=== PATIENT | male | born 1995 | race Caucasian/White ===

== ENCOUNTER 2020-02-20 21:07 | Emergency (ER) | payer BC, OTHER ==
[2020-02-20 21:14] VITALS: BP 143/78; PULSE 72; RESP 18; TEMP 99.4
--- NOTE | 2020-02-20 21:29 | ED ---
Wound/Laceration HPI - General Chief Complaint: Wound/Laceration Stated Complaint: Thumb Laceration, [facility] Time Seen by Provider: 02/20/20 21:15 Source: patient Mode of arrival: ambulatory Limitations: no limitations - History of Present Illness Initial Comments: Patient is a 24-year-old male presenting to emergency Department with a cut to his right thumb. 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 Bleeding is controlled at this time. He denies being on blood thinners. He states his tetanus vaccine is up-to-date. He has no further complaints at this time. Upon arrival to the ER, his vitals are stable. - Related Data Home Medications Medication Instructions Recorded Confirmed Docusate [Colace] 100 mg PO BID 01/24/16 01/27/16 Fiber Supplement 1 tab PO DAILY 01/24/16 01/27/16 Sinus Reliever 1 tab PO DAILY PRN 01/24/16 01/27/16 Allergies Allergy/AdvReac Type Severity Reaction Status Date / Time atomoxetine HCl AdvReac Unknown Dehydration, Verified 02/20/20 21:14 [From Strattera] Stomach cramps, Constipation Review of Systems ROS Statement: Those systems with pertinent positive or pertinent negative responses have been documented in the HPI. ROS Other: All systems not noted in ROS Statement are negative. Past Medical History Additional Past Medical History / Comment(s): CONSTIPATION, GANGLION CYST RIGHT WRIST. History of Any Multi-Drug Resistant Organisms: None Reported Past Surgical History: No Surgical Hx Reported Additional Past Anesthesia/Blood Transfusion Reaction / Comment(s): PT HAS NEVER RECEIVED ANESTHESIA Past Psychological History: No Psychological Hx Reported Smoking Status: Never smoker Past Alcohol Use History: None Reported Past Drug Use History: None Reported - Past Family History Mother Family Medical History: No Reported History General Exam - General Exam Comments Initial Comments: GENERAL: Well-appearing, well-nourished and in no acute distress. HEAD: Atraumatic, normocephalic. EYES: Pupils equal round and reactive to light, extraocular movements intact, sclera anicteric, conjunctiva are normal. ENT: TMs normal, nares patent, oropharynx clear without exudates. Moist mucous membranes. NECK: Normal range of motion, supple without lymphadenopathy or JVD. LUNGS: Breath sounds clear to auscultation bilaterally and equal. No wheezes rales or rhonchi. HEART: Regular rate and rhythm without murmurs, rubs or gallops. ABDOMEN: Soft, nontender, normoactive bowel sounds. No guarding, no rebound. No masses appreciated. : Deferred EXTREMITIES: Normal range of motion, no pitting or edema. No clubbing or cyanosis. NEUROLOGICAL: Cranial nerves II through XII grossly intact. Normal speech, normal gait. PSYCH: Normal mood, normal affect. SKIN: Warm, Dry, normal turgor, no rashes. Patient has a very superficial 0.5cm laceration to the tip of the right thumb. There is no active bleeding, this does not require sutures or skin glue. Limitations: no limitations Course Vital Signs 02/20/20 21:12 Temperature 99.4 F Pulse Rate 72 Respiratory 18 Rate Blood Pressure 143/78 O2 Sat by Pulse 99 Oximetry Medical Decision Making - Medical Decision Making Patient is a 24-year-old male here for a very superficial 0.5cm laceration to the tip of the right thumb that he sustained while on duty with a dirty razor. This does not require sutures or skin glue. There is no active bleeding. Patient is up-to-date with his tetanus vaccine. Wound was cleaned with sterile saline, topical antibiotic and bandage was applied. He is stable for discharge. Case discussed with Dr. Lagos. Disposition Clinical Impression: Superficial laceration of right hand Disposition: HOME SELF-CARE Condition: Stable Instructions (If sedation given, give patient instructions): Laceration (ED) Additional Instructions: Please return to the Emergency Department if symptoms worsen or any other concerns. Keep wound clean and dry, wash soap and water, apply topical antibiotic once a day. Is patient prescribed a controlled substance at d/c from ED?: No Referrals: None,Stated [Primary Care Provider] - 1-2 days
== END 2020-02-20 21:36 | disposition home or self-care (01) ==
LOC: EC 21:07
DX: S61.011A Laceration without foreign body of right thumb without damage to nail, initial encounter (principal); K59.00 Constipation, unspecified; Z88.8 Allergy status to other drugs, medicaments and biological substances; Z79.899 Other long term (current) drug therapy; W26.8XXA Contact with other sharp object(s), not elsewhere classified, initial encounter; Y92.69 Other specified industrial and construction area as the place of occurrence of the external cause; Y99.0 Civilian activity done for income or pay
CPT/HCPCS: 99282

== ENCOUNTER → 2021-01-13 | Outpatient (CLI) | payer BC ==
--- NOTE | 2021-01-13 09:46 | US ---
EXAMINATION TYPE: US abdomen complete DATE OF EXAM: 01/13/2021 COMPARISON: NONE CLINICAL HISTORY: R10.00 Right Upper Quad Pain. RUQ pain for years EXAM MEASUREMENTS: Liver Length: 14.5 cm Gallbladder Wall: 0.2 cm CBD: 0.4 cm Spleen: 12.0 cm Right Kidney: 9.9 x 4.5 x 4.9 cm Left Kidney: 11.3 x 4.3 x 4.4 cm Pancreas: limited views appear wnl Liver: wnl Gallbladder: wnl Evidence for sonographic Jeffers's sign: no CBD: wnl Spleen: wnl Right Kidney: wnl Left Kidney: wnl Upper IVC: wnl Abd Aorta: wnl The liver is homogenous. The intrahepatic portion of the IVC and proximal abdominal aorta are within normal limits. There is no evidence of cholelithiasis. Common bile duct is unremarkable. The visu alized portions of the pancreas are homogenous. The spleen is unremarkable. Kidneys are symmetric a nd free of hydronephrosis. No renal lesions are seen. IMPRESSION: WNL
== END | disposition home or self-care (01) ==
LOC: RADUSWWP 08:52
PROVIDERS: ATTEND Family Medicine
DX: R10.11 Right upper quadrant pain (principal)
CPT/HCPCS: 76700

== ENCOUNTER → 2021-02-19 | Outpatient (CLI) | payer BC ==
--- NOTE | 2021-02-19 09:54 | NM ---
Nuclear medicine hepatobiliary scan. HISTORY: Pain. DOSAGE: The patient received 8 ounces of ensure plus and 5 mCi of Technetium 99m Choletec. FINDINGS: There is normal hepatic extraction. The gallbladder is seen by 20 minutes. There is bilia ry to bowel clearance by 20 minutes. Ejection fraction is 70%. IMPRESSION: 1. Normal hepatobiliary exam
== END | disposition home or self-care (01) ==
LOC: RADNMMAIN 07:00
PROVIDERS: ATTEND Family Medicine
DX: R10.9 Unspecified abdominal pain (principal)
CPT/HCPCS: 78226; A9537

== ENCOUNTER → 2021-12-04 | Outpatient (CLI) | payer BC ==
--- NOTE | 2021-12-04 08:11 | US ---
EXAMINATION TYPE: US abdomen complete DATE OF EXAM: 12/04/2021 COMPARISON: NONE CLINICAL HISTORY: R74.8 ABNORMAL LEVELS OF OTHER SERUM ENZYMES. Elevated lfts EXAM MEASUREMENTS: Liver Length:13.3 cm Gallbladder Wall: .2 cm CBD: .3 cm Spleen: 12.6 cm Right Kidney: 9.7 x 4.3 x 4.4 cm Left Kidney: 10.9 x 3.9 x cm Pancreas: wnl Liver: wnl Gallbladder: wnl Evidence for sonographic Jeffers's sign: no CBD: wnl Spleen: wnl Right Kidney: wnl Left Kidney: wnl Upper IVC: wnl Abd Aorta: wnl The liver is homogenous. The intrahepatic portion of the IVC and proximal abdominal aorta are within normal limits. There is no evidence of cholelithiasis. Common bile duct is unremarkable. The visu alized portions of the pancreas are homogenous. The spleen is unremarkable. Kidneys are symmetric a nd free of hydronephrosis. No renal lesions are seen. IMPRESSION: No distinct abnormality appreciated.
== END | disposition home or self-care (01) ==
LOC: RADUSWWP 07:04
PROVIDERS: ATTEND Family Medicine
DX: R74.8 Abnormal levels of other serum enzymes (principal)
CPT/HCPCS: 76700

== ENCOUNTER 2022-09-01 19:28 | Emergency (ER) | payer BC, OTHER ==
--- NOTE | 2022-09-01 20:39 | XR ---
EXAMINATION TYPE: XR hand complete RT DATE OF EXAM: 09/01/2022 8:21 PM INDICATION: Patient age:Male; 27 years old; Reason for study: right finger/right knuckle injury; [facility]. COMPARISON: None TECHNIQUE: Frontal, lateral and oblique views of the right hand were obtained. FINDINGS: Curvilinear lucency through the base of the second digit proximal phalanx ulnar aspect with extension to the articular surface. No displacement. There is soft tissue swelling. IMPRESSION: Acute nondisplaced intra-articular fracture of the second digit proximal phalanx base.
--- NOTE | 2022-09-01 20:44 | ED ---
Upper Extremity HPI - General Chief Complaint: Extremity Injury, Upper Stated Complaint: Finger injury Time Seen by Provider: 09/01/22 20:01 Source: patient Mode of arrival: ambulatory Limitations: no limitations - History of Present Illness Initial Comments: Patient is a 27-year-old male who presents to the emergency department for right pointer finger injury. Patient states he smashed his finger in automatic revolving door. He reports mild pain over the knuckle of his right pointer finger. 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 - Related Data Home Medications Medication Instructions Recorded Confirmed Docusate [Colace] 100 mg PO BID 01/24/16 01/27/16 Fiber Supplement 1 tab PO DAILY 01/24/16 01/27/16 Sinus Reliever 1 tab PO DAILY PRN 01/24/16 01/27/16 Previous Rx's Medication Instructions Recorded Ibuprofen [Motrin] 800 mg PO Q8HR PRN #30 tab 09/01/22 Allergies Allergy/AdvReac Type Severity Reaction Status Date / Time atomoxetine HCl AdvReac Unknown Dehydration, Verified 09/01/22 19:46 [From Strattera] Stomach cramps, Constipation Review of Systems ROS Statement: Those systems with pertinent positive or pertinent negative responses have been documented in the HPI. ROS Other: All systems not noted in ROS Statement are negative. Past Medical History Additional Past Medical History / Comment(s): CONSTIPATION, GANGLION CYST RIGHT WRIST. History of Any Multi-Drug Resistant Organisms: None Reported Past Surgical History: No Surgical Hx Reported Additional Past Anesthesia/Blood Transfusion Reaction / Comment(s): PT HAS NEVER RECEIVED ANESTHESIA Past Psychological History: No Psychological Hx Reported Smoking Status: Never smoker Past Alcohol Use History: None Reported Past Drug Use History: None Reported - Past Family History Mother Family Medical History: No Reported History General Exam Limitations: no limitations General appearance: alert, in no apparent distress Head exam: Present: atraumatic, normocephalic, normal inspection Respiratory exam: Present: normal lung sounds bilaterally. Absent: respiratory distress, wheezes, rales, rhonchi, stridor Cardiovascular Exam: Present: regular rate, normal rhythm, normal heart sounds. Absent: systolic murmur, diastolic murmur, rubs, gallop, clicks Extremities exam: Present: other (Minimal swelling and erythema over right pointer finger knuckle. Neurovascularly intact.Full range of motion) Neurological exam: Present: alert, oriented X3, CN II-XII intact Psychiatric exam: Present: normal affect, normal mood Skin exam: Present: warm, dry, intact, normal color. Absent: rash Course Vital Signs 09/01/22 09/01/22 19:44 21:01 Temperature 98.1 F 98.0 F Pulse Rate 89 84 Respiratory 18 17 Rate Blood Pressure 155/105 171/108 O2 Sat by Pulse 98 98 Oximetry Procedures - Orthopedic Splinting/Casting Injury #1 Upper Extremity Injury Location: short arm Upper Extremity Immobilizer: volar splint Medical Decision Making - Medical Decision Making This is a 27-year-old presenting with right pointer finger injury. Right hand x-ray obtained and interpreted by me which shows an acute nondisplaced intra-articular fracture of the second digit proximal phalanx base. I placed patient in volar splint. Neurovascularly intact on reassessment. Fracture education discussed in detail. He will be discharged with orthopedic referral. Dr. Lagos is my attending. Disposition Clinical Impression: Finger fracture, right Disposition: HOME SELF-CARE Condition: Good Instructions (If sedation given, give patient instructions): Finger Fracture (ED) Additional Instructions: Keep splint clean and dry. Take Motrin as directed for pain. Follow-up with referral specialist in 1-2 days. Return to the emergency department experience new, concerning, or worsening symptoms. Prescriptions: Ibuprofen [Motrin] 800 mg PO Q8HR PRN #30 tab PRN Reason: Pain Is patient prescribed a controlled substance at d/c from ED?: No Referrals: Dwain Cisneros MD [Primary Care Provider] - 1-2 days Panda Jeffers MD [STAFF PHYSICIAN] - 1-2 days
[2022-09-01 21:02] VITALS: BP 171/108; PULSE 84; RESP 17; TEMP 98
== END 2022-09-01 21:17 | disposition home or self-care (01) ==
LOC: EC 19:28
DX: S62.644A Nondisplaced fracture of proximal phalanx of right ring finger, initial encounter for closed fracture (principal); Z88.8 Allergy status to other drugs, medicaments and biological substances; W23.1XXA Caught, crushed, jammed, or pinched between stationary objects, initial encounter
CPT/HCPCS: 29125; 99283

== ENCOUNTER → 2022-10-02 | Outpatient (CLI) | payer BC ==
[2022-10-02 16:18] LABS: Albumin 4.7 g/dL (3.8-4.9); Albumin/Globulin Ratio 1.83 (1.60-3.17); Bilirubin, Conjugated 0.37 mg/dL (0.20-0.40); Bilirubin,Unconjugated 1.02 mg/dL (0.20-1.00); Globulin 2.6 g/dL (1.6-3.3); Total Bilirubin 1.4 mg/dL (0.30-1.20); Total Protein 7.3 g/dL (6.2-8.2)
== END | disposition home or self-care (01) ==
LOC: LABWHC1 08:59
PROVIDERS: ATTEND Nurse Practitioner Family
DX: K76.0 Fatty (change of) liver, not elsewhere classified (principal)
CPT/HCPCS: 36415; 80076

== ENCOUNTER 2022-10-16 06:47 | Day surgery (SDC) | payer BC ==
[~2022-10-16 06:47] MED LIST: LIDOCAINE 1% (10MG/ML) FOR IV START INTRADERMA PRN
[2022-10-16] MEDS: LACTATED RINGERS 1,000 ML IV SCH ×2 (07:04→07:41)
[2022-10-16 07:09] VITALS: TEMP 70
[2022-10-16] MEDS ORDERED: LIDOCAINE 2% INJ 20 MG/ML (2 ML VIAL) ONE (07:38)
[2022-10-16] MEDS ORDERED: fentaNYL (PF) 50 MCG/ML 2 ML AMP ONE (07:38)
[2022-10-16] MEDS ORDERED: PROPOFOL 10 MG/ML 20 ML VIAL IV ONE (07:38)
[2022-10-16] MEDS ORDERED: MIDAZOLAM 2 MG/2 ML VIAL ONE (07:38)
--- NOTE | 2022-10-16 08:00 | P.PCN ---
Date of Procedure: 10/16/22 Procedure(s) Performed: Brief history: Patient is a pleasant 27-year-old white male scheduled for an elective upper endoscopy as well as colonoscopy as a part of evaluation of diffuse abdominal pain, gas esophagitis or reflux symptoms and change in bowel habits for the last 5 years duration. He also complains of severe abdominal bloating postprandially almost on a daily basis. Procedure performed: Esophagogastroduodenoscopy with biopsy Colonoscopy with biopsy Preoperative diagnosis: Abdominal pain, abdominal bloating and gastroesophageal reflux symptoms Change in bowel habits Anesthesia: MAC Procedure: After informed consent was obtained from the patient was brought into the endoscopy unit and IV sedation was administered by anesthesia under continuous monitoring. Initially upper endoscopy was done. The Olympus GF 160 video endoscope was inserted inserted into the mouth and esophagus intubated without any difficulty and was gradually advanced into the stomach and duodenum and carefully examined. The bulb and second part of the duodenum appeared normal. Abscesses were done from the duodenum to rule out celiac disease. The scope was then withdrawn into the stomach adequately insufflated with air and upon careful examination the antrum mild gastritis and biopsies were done from this area. Mucosa of the body, cardia and fundus appeared normal. The scope was then withdrawn into the esophagus. The GE junction was located at 40 cm to the incisors. It appeared regular with no erythema erosions or ulcerations. Rest of the esophagus appeared normal. Patient tolerated the procedure well. At this time the patient continued to remain sedation. Initial digital rectal examination was normal. Olympus CF 160 video colonoscope was then inserted into the rectum and gradually advanced to the cecum without any difficulty. Careful examination was performed as the scope was gradually being withdrawn. The prep was excellent. Terminal ileum was intubated and 20 cm visualized and appeared normal. The cecum, ascending colon, transverse colon, descending colon, sigmoid colon and rectum appeared normal. Random biopsies were done from ascending and descending colon to rule out microscopic/collagenous colitis. Retroflexion was performed in the rectum and no lesions were noted. Patient tolerated the procedure well. Impression: 1. Upper endoscopy revealed mild antral gastritis but no evidence of esophagitis or peptic ulcer disease 2. Colonoscopy was within normal limits with no evidence of colorectal neoplasia. Normal-appearing terminal ileum Recommendations: Findings of this examination were discussed with the patient as well as his family. He was advised to follow with the biopsy results will be seen in office in 3-4 weeks.
[2022-10-16 08:33] VITALS: RESP 16
[2022-10-16 08:35] VITALS: BP 132/81; PULSE 57
== END 2022-10-16 08:57 | disposition home or self-care (01) ==
LOC: ORWHC2ENDO 06:47
PROVIDERS: ATTEND Internal Medicine Gastroenterology
DX: K63.89 Other specified diseases of intestine (principal); K29.50 Unspecified chronic gastritis without bleeding; K31.89 Other diseases of stomach and duodenum; K21.9 Gastro-esophageal reflux disease without esophagitis; Z79.899 Other long term (current) drug therapy
CPT/HCPCS: 45380; 43239; 88305; J2250; J3010; J2704; J2001

== ENCOUNTER → 2023-11-02 | Outpatient (CLI) | payer BC ==
[2023-11-02 16:22] LABS: Basophils # (A) 0.08 X 10*3/uL (0.00-0.10); Basophils % (A) 1.2 %; Eosinophils # (A) 0.77 X 10*3/uL (0.04-0.35); Eosinophils % (A) 11.9 %; HCT 51.3 % (39.6-50.0); HGB 17.4 g/dL (13.0-17.0); Lymphocytes # (A) 2.22 X 10*3/uL (0.90-5.00); Lymphocytes % (A) 34.4 %; MCH 30.6 pg (27.0-32.0); MCHC 33.9 g/dL (32.0-37.0); MCV 90.3 FL (80.0-97.0); Mean Platelet Volume 10.3 FL (9.5-12.2); Monocytes % (A) 7.8 %; NRBC Per 100 WBC 0 X 10*3/uL (0.00-0.01); Neutrophils # (A) 2.86 X 10*3/uL (1.80-7.70); Neutrophils % (A) 44.4 %; Platelet Count 267 X 10*3/uL (140-440); RBC 5.68 X 10*6/uL (4.40-5.60); RDW 12.4 % (11.5-14.5); WBC 6.45 X 10*3/uL (4.50-10.00)
[2023-11-02 16:42] LABS: ALT 25 U/L (10-49); AST 22 U/L (14-35); Albumin 4.7 g/dL (3.8-4.9); Albumin/Globulin Ratio 1.81 Ratio (1.60-3.17); Alkaline Phosphatase 64 U/L (41-126); BUN/Creat Ratio 10.36 Ratio (12.00-20.00); Blood Urea Nitrogen 11.4 mg/dL (9.0-27.0); Calcium 9.9 mg/dL (8.7-10.3); Carbon Dioxide 27.4 mmol/L (21.6-31.8); Chloride 105 mmol/L (96-109); Globulin 2.6 g/dL (1.6-3.3); Glucose 93 mg/dL (70-110); Potassium 4.9 mmol/L (3.5-5.5); Sodium 142 mmol/L (135-145); Total Bilirubin 0.6 mg/dL (0.3-1.2); Total Protein 7.3 g/dL (6.2-8.2)
== END | disposition home or self-care (01) ==
LOC: LABWHC1 10:45
PROVIDERS: ATTEND Internal Medicine Gastroenterology
DX: K76.0 Fatty (change of) liver, not elsewhere classified (principal)
CPT/HCPCS: 36415; 80053; 85025

== ENCOUNTER → 2024-08-23 | Outpatient (CLI) | payer BC | END | disposition home or self-care (01) | LOC: LABWHC1 11:39 | PROVIDERS: ATTEND Pathology Anatomic Pathology & Clinical Pathology | DX: Z02.83 Encounter for blood-alcohol and blood-drug test (principal) | CPT/HCPCS: 36415 ==